=== PATIENT | female | born 2000 | race African-American/Black ===

== ENCOUNTER 2019-07-04 13:34 | Inpatient (IN) | payer OTHER ==
[~2019-07-04] VITALS: Ht 160 cm; Wt 97.2 kg
[2019-07-04] MEDS ORDERED: PRENTAB9 PO (13:51)
[2019-07-04 13:52] VITALS: BP 130/86
[2019-07-04] MEDS ORDERED: miSOPROStol 50 MCG 1/2 TAB (S0191) PO ONE (14:15)
[2019-07-04 14:41] LABS: BASO % 0.3 % (0.0-1.0); EOS # 0.1 10^3/uL (0.0-0.5); EOS % 0.7 % (0.0-3.0); HEMATOCRIT 34.9 % (36.0-47.0); HEMOGLOBIN 11.8 g/dl (12.0-15.5); LYMPH # 2.1 10^3/uL (1.5-5.0); LYMPH % 20.3 % (24.0-44.0); MEAN CORPUSCULAR HEMOGLOBIN 31.4 pg (27.0-33.0); MEAN CORPUSCULAR HGB CONC 33.8 g/dl (32.0-36.5); MEAN CORPUSCULAR VOLUME 92.8 fl (80.0-96.0); MONO # 1.1 10^3/uL (0.0-0.8); MONO % 10.4 % (0.0-5.0); NEUTROPHILS # 6.9 10^3/uL (1.5-8.5); NEUTROPHILS % 67.7 % (36.0-66.0); PLATELET COUNT, AUTOMATED 288 10^3/uL (150-450); RED BLOOD COUNT 3.76 10^6/uL (4.00-5.40); WHITE BLOOD COUNT 10.1 10^3/uL (4.0-10.0)
[2019-07-04 16:56] VITALS: BP 132/75
--- NOTE | 2019-07-04 19:18 | IPNPDOC ---
Text Note Date of Service The patient was seen on 07/04/19. NOTE patient is a 18 yo G1 @41 wks, admitted for IOL. She received misoprostol 50mcg x 1. patient feeling mild ctx. vitals: normal NAD fht: 140/mod emelyn/pos accel/no decel toco: ctx q 1-2mins CE: 2-3cm/50 (per nursing check) a/p patient in latent labor. responding to misoprostol. Will continue expectant management at this time. redose misoprostol if contraction slows down. recheck in 6hrs. DO Emilee VS,Goodbone, I+O VS, Fishbone, I+O Laboratory Tests 07/04/19 14:04 Vital Signs Date Time Temp Pulse Resp B/P (MAP) Pulse Ox O2 Delivery O2 Flow Rate FiO2 07/04/19 16:56 69 18 132/75 (94) JENELLE RATLIFF DO July 04, 2019 19:18
[2019-07-04 20:11] VITALS: BP 134/70
[2019-07-04] MEDS ORDERED: PROMETHAZINE INJ 25 MG/ML VIAL (J2550) IV ONE (20:30)
[2019-07-04] MEDS ORDERED: MORPHINE 10 MG/ML 1ML VIAL (J2270) IV ONE (20:30)
[2019-07-04] MEDS ORDERED: MORPHINE 10 MG/ML 1ML VIAL (J2270) IM ONE (20:30)
[2019-07-04 22:59] VITALS: BP 117/66
[2019-07-05] VITALS (63 sets, daily range): BP systolic 92–159; BP diastolic 51–81
[2019-07-05] MEDS ORDERED: PROMETHAZINE INJ 25 MG/ML VIAL (J2550) IV ONE (01:15)
[2019-07-05] MEDS ORDERED: BUTORPHANOL 2 MG/ML INJ (J0595) IV ONE (01:15)
[2019-07-05] MEDS ORDERED: FENTANYL 2MCG/ML ROPIVACAINE 0.2% IN 0.9% NACL 100ML IVBAG As Ordered ONE ×2 (04:04→14:24)
[2019-07-05] MEDS ORDERED: EPIDURAL COMMENT XX SCH (05:30)
[2019-07-05] MEDS ORDERED: ePHEDrine SULFATE 25 MG/5 ML(5MG/ML) SYRINGE IV PRN (05:30)
[2019-07-05] MEDS ORDERED: NALOXONE INJ 0.4MG/1ML VIAL (J2310 PER 1MG) IV PRN (05:30)
[2019-07-05] MEDS ORDERED: EPIDURAL/PCA KEYS XX PRN (05:30)
[2019-07-05] MEDS ORDERED: diphenhydrAMINE 50MG/ML VIAL (J1200) IV PRN (05:30)
[2019-07-05] MEDS ORDERED: ONDANSETRON 4MG/2ML VIAL IV PRN (05:30)
[2019-07-05] MEDS: FENTANYL/ROPIVACAINE/NACL BAG 100 ML EPIDURAL SCH ×2 (05:30→14:45)
[2019-07-05] MEDS ORDERED: REFRIGERATOR IV KEYS XX PRN (05:30)
[2019-07-05] MEDS ORDERED: OXYTOCIN DRIP 30 UNITS in IV 1 EA IV SCH (06:15)
[2019-07-05] MEDS: LACTATED RINGER'S 1000 ML IV PRN (08:10)
--- NOTE | 2019-07-05 11:12 | IPNPDOC ---
Obstetrical Progress Note Date of Service July 05, 2019 Subjective [place] of care note. Received report from Dr. Hebert during board sign out of 18yo at 41+1wks currently undergoing post-dates IOL. She received 1x PO 50mcg cytotec yesterday, IV pain medication; now s/p epidural placement this AM and pitocin initially started at 0738. SROM occurred at 2205 with light meconium. It was noted that fetus has had multiple periods of minimal variability and upon strip review, sublte, intermittent late decelerations also noted. Pt now comfortable and denies any concerns; no longer feeling any pain. Her partner is at the bedside. Objective O: VSS, afebrile, normotensive; *although afebrile, it has been noted pt's temp has continued to rise overnight - will closely monitor VE at 0914: 5/90/-2, mid position, caput present *light bloody show noted on perineum; once hand removed after cervical exam, there was approximately 2TBS blood noted in hand; there is no trickling or clots present; will closely monitor bleeding FHR: 140s, minimal variability (there are periods of moderate variability with accels); interventions have been ongoing throughout labor (LR bolus, ephedrine after epidural, repositioning); O2 placed at 0945 when variability was borderline absent and fetus responded almost instantly. CTX: irregular, but present; currently q4 minutes Pitocin was turned off when O2 started; restarted at 1054 at 2mu/min Vital Signs Date Time Temp Pulse Resp B/P (MAP) Pulse Ox O2 Delivery O2 Flow Rate FiO2 07/05/19 09:43 93 118/57 (77) 07/05/19 09:26 16 07/05/19 09:02 99.4 07/05/19 07:16 98 Room Air Assessment Heart Rate Tracing: Category II Sterile Vaginal Examination Postion/Presentation: Cephalic presentation Assessment and Plan Group B Streptococcus: Negative Anticipate: Vaginal Delivery Additional Comments A: 18yo at 41+1wks, IOL for post-dates; Persistent Category II FHT d/t minimal variability (with ongoing interventions). P: Continue interventions for Category II FHT Close maternal/ monitoring Close monitoring of vaginal bleeding CEFM x2, consider placing internal monitors at next exam Dr. Cinda aware of /labor status Safe to proceed and anticipate at this time ALLAN BREEN. CELE July 05, 2019 11:12
--- NOTE | 2019-07-05 17:21 | IPNPDOC ---
Obstetrical Progress Note Date of Service July 05, 2019 Subjective In room for labor assessment; pt consents to cervical exam. Narda is a 18yo at 41+1wks undergoing IOL for post dates. She is still very comfortable with her epidural in place. FSE placed at 1244; during that exam cervix was 6/90/-2. Objective O: VSS, afebrile, normotensive VE at 1652: 6.5cm, caput is a 0 station. Cervix is now thicker than last exam, feels slightly swollen. FHR 140s, minimal variability, early decelerations noted. There are remarkable periods of moderate variability with positive accels. CTX by toco are difficult to appropriately monitor; IUPC was placed and MVUs are now 250. Pitocin running at 4mu/min Vital Signs Date Time Temp Pulse Resp B/P (MAP) Pulse Ox O2 Delivery O2 Flow Rate FiO2 07/05/19 16:11 99.0 93 16 120/65 (83) 07/05/19 07:16 98 Room Air Assessment Heart Rate Tracing: Category II Sterile Vaginal Examination Postion/Presentation: Cephalic presentation Assessment and Plan Additional Comments A: 18yo at 41+1wks, minimal cervical global director air and climate change the past 4 hours, now with cervical swelling; Persistent category II FHT d/t minimal variability (with periods of moderate variability with accels); meconium stained amniotic fluid; pitocin at 4mu/min. P: Continue induction Close monitoring of maternal/ status Will notify Dr. Loo of labor/ status Reassess in 2 hours or sooner PRN Safe to proceed with goal of vaginal delivery. ALLAN BREEN CNM July 05, 2019 17:21
--- NOTE | 2019-07-05 21:55 | IPNPDOC ---
Obstetrical Progress Note Date of Service July 05, 2019 Subjective In room for labor assessment. Patient consents for cervical exam. Narda is a 18yo at 41+1wks, undergoing IOL for post dates. She is starting to feel more rectal pressure at this time. Objective O: VSS, normotensive, afebrile VE: 8-9/100/0 FHR 140s, moderate variability (cycling periods of minimal variability), positive accels, early, late and variable decelerations noted, now repetitive. CTX by IUPC: q2 minutes, MVUs around 230 Pitocin running at 6mu/min Interventions ongoing for Late and Variable decelerations Vital Signs Date Time Temp Pulse Resp B/P (MAP) Pulse Ox O2 Delivery O2 Flow Rate FiO2 07/05/19 19:42 93 134/69 (90) 07/05/19 19:11 99.3 17 07/05/19 07:16 98 Room Air Assessment Heart Rate Tracing: Category II Sterile Vaginal Examination Postion/Presentation: Cephalic presentation Assessment and Plan Additional Comments A: 18yo at 41+1wks, Active labor, Category II FHT with interventions P: Tracing reviewed with Dr. Loo Start Amnioinfusion (250mL NS bolus) Close maternal/ monitoring Continue pitocin Safe to proceed Anticipate ALLAN SOTO CNM July 05, 2019 21:55
[2019-07-05] MEDS ORDERED: fentaNYL 100 MCG/2 ML INJECTION (J3010) As Ordered ONE (23:37)
[2019-07-06] VITALS (59 sets, daily range): BP systolic 113–156; BP diastolic 62–89
[2019-07-06] MEDS: FENTANYL/ROPIVACAINE/NACL BAG 100 ML EPIDURAL SCH ×2 (01:30→11:30)
--- NOTE | 2019-07-06 03:56 | IPNPDOC ---
Text Note Date of Service The patient was seen on 07/06/19. NOTE Labor Progress Note S: 18yo at 41+2wks feeling more and more rectal pressure. She is s/p epidural bolus in which she was able to sleep. She is not reporting pain. O: VSS, afebrile, normotensive VE: 9/C/0 (unchanged from 2318) FHR 135, minimal variability with periods of moderate variability, + accels, no decels noted CTX: q1-2, MVUs averaging 240 A: Active labor with no progression, Category II FHT d/t minimal variability, overall reassuring at this time P: Dr. Loo notified of patient and status Continue pitocin Close maternal/ monitoring Monitor pain control, epidural bolus if needed Safe to proceed with anticipate of C/S if appropriate VS,Fishbone, I+O VS, Fishbone, I+O Vital Signs Date Time Temp Pulse Resp B/P (MAP) Pulse Ox O2 Delivery O2 Flow Rate FiO2 07/05/19 19:42 93 134/69 (90) 07/05/19 19:11 99.3 17 07/05/19 07:16 98 Room Air I&O- Last 24 Hours up to 6 AM 07/06/19 06:00 Intake Total 1845 ml Output Total 2025 ml Balance -180 ml ALLAN BREEN CNM July 06, 2019 03:56
--- NOTE | 2019-07-06 04:53 | IPNPDOC ---
Text Note Date of Service The patient was seen on 07/06/19. NOTE Intrapartum Note Narda is a 18yo with SIUP at 41w2d undergoing IOL for LTG, started on afternoon of 07/03. She has an epidural and feels some vaginal pressure but otherwise comfortable. MVUs have been adequate with IUPC in place. Pitocin currently at 6mu. Cat I FHRT. I was called in to evaluate since SCE unchanged over 4 hours, still 9cm. Vitals wnl, afebrile SCE: right lip, 90, -1, bladder constantino bulb was below the cervix/ head, so I pushed it back up into the bladder Given the resolution of mechanical impedance in the setting of continued Cat I FHRT, will not proceed with PLTCS at this time and allow for continued labor and possible . Plan to re-eval in 2-4hr or earlier as indicated Dr. Tari Loo MD VS,Taqueria, I+O VS, Taqueria, I+O Vital Signs Date Time Temp Pulse Resp B/P (MAP) Pulse Ox O2 Delivery O2 Flow Rate FiO2 07/05/19 19:42 93 134/69 (90) 07/05/19 19:11 99.3 17 07/05/19 07:16 98 Room Air I&O- Last 24 Hours up to 6 AM 07/06/19 06:00 Intake Total 1845 ml Output Total 2025 ml Balance -180 ml Tari Loo MD July 06, 2019 04:53
[2019-07-06] MEDS ORDERED: ACETAMINOPHEN 650 MG SUPP PR PRN (07:45)
--- NOTE | 2019-07-06 07:59 | IPNPDOC ---
Text Note Date of Service The patient was seen on 07/06/19. NOTE Intrapartum Note S: Narda is a 18yo with SIUP at 41w2d undergoing IOL for post dates, started at 41+0wks on [id number]. She has also been ruptured x 34 hours. She is feeling increased vaginal pressure. MVUs have been adequate with IUPC in place. Pitocin currently at 4mu. Cat II FHRT d/t minimal variability. Narda states that she now desires a section d/t to maternal exhaustion and feels as if "something is wrong." She is also refusing to reposition and use the peanut ball any longer. O: Maternal temp (101.1 temporal); Maternal tachycardia (115-130); normotensive FHR 155, minimal variability, no accels or decels present. Last access was at 0718 during my exam. CTX by IUPC: MVUs 195 VE: Anterior right lip/90/0; Attempted a trial push do see if cervix to try to reduce lip; not effective at this time. A: New Dx of chorio, unchanged cervix ( head now at 0); Pt desires delivery by section. Category II FHT with ongoing interventions. P: Dr. Loo notified of patient/ status, chorio, and patient's request for section. Unasyn 3g and 650mg Tylenol (suppository) ordered for chorio Peds staff notified of chorio Will continue to encourage position change and peanut ball placement. Continue interventions for Category II FHT Pitocin turned off. Will reassess at o/a 0830 to determine plan for delivery. VS,Fishbone, I+O VS, Fishbone, I+O Vital Signs Date Time Temp Pulse Resp B/P (MAP) Pulse Ox O2 Delivery O2 Flow Rate FiO2 07/06/19 07:20 101.1 07/06/19 05:11 109 119/73 (88) 07/06/19 04:46 16 07/05/19 07:16 98 Room Air I&O- Last 24 Hours up to 6 AM 07/06/19 06:00 Intake Total 1845 ml Output Total 2625 ml Balance -780 ml ALLAN BREEN CNM July 06, 2019 07:59
[2019-07-06] MEDS ORDERED: AMPICILLIN SOD/SULBACTAM SOD 3 GM in D5W MINI-BAG PLUS 100 ML IV ONE (08:00)
--- NOTE | 2019-07-06 08:58 | IPNPDOC ---
Text Note Date of Service The patient was seen on 07/06/19. NOTE Decision for section I was called at 0730 for new maternal fever to 102.6F with maternal tachycardia (no tachycardia at that point) and diagnosis of chorioamnionitis made, Unasyn 3g q6hr started as well as tylenol. Patient is declining to pursue any further, requested pitocin to be turned off. She feels pressure with her ctx but no belly pain. Currently still febrile to 102F, pulse 113, normotensive Cat I-II FHRT with bl 160, +accels, -decels, min-mod emelyn Davy: ctx q2-3min SCE: 9 (still same right lip irreducible)/90/-1. FSE and IUPC removed in anticipation of c/s I counseled patient regarding diagnosis of arrest of dilation and chorioamnionitis (which was already discussed with CELE Zhang). Consent form for PLTCS and blood transfusion discussed, all r/b/a, and signed by patient and me. All questions answered. Nursing team aware of decision for and calling anesthesia provider now. Will proceed as soon as OR ready. 2g IV anceph Ivetitra NPO Dr. Tari Loo MD VS,Taqueria, I+O VS, Taqueria, I+O Vital Signs Date Time Temp Pulse Resp B/P (MAP) Pulse Ox O2 Delivery O2 Flow Rate FiO2 07/06/19 08:49 124 07/06/19 08:48 142/80 (100) 07/06/19 08:39 102.6 18 07/05/19 07:16 98 Room Air I&O- Last 24 Hours up to 6 AM 07/06/19 06:00 Intake Total 1845 ml Output Total 2625 ml Balance -780 ml Tari Loo MD July 06, 2019 08:58
[2019-07-06] MEDS ORDERED: BICITRA 30ML SOLN UDC PO ONE (09:00)
[2019-07-06] MEDS ORDERED: ceFAZolin SOD 2 GM in IV 1 EA IV ONE (09:15)
[2019-07-06] MEDS: LACTATED RINGER'S 1000 ML IV PRN (09:25)
[2019-07-06] MEDS ORDERED: LIDOCAINE 2% W/EPIN INJ 20ML **PRES FREE As Ordered ONE (09:37)
[2019-07-06] MEDS ORDERED: MORPHINE PRES-FREE INJ 10 MG/10 ML VIAL (J2274) As Ordered ONE (09:53)
[2019-07-06] MEDS ORDERED: OXYTOCIN 30 UNITS IN 0.9% NaCl 500ML IV BAG (J2590) As Ordered ONE ×2 (09:53→10:53)
[2019-07-06] MEDS ORDERED: AZITHROMYCIN INJ 500MG VIAL (J0456 PER 500MG) As Ordered ONE (10:07)
[2019-07-06] MEDS ORDERED: NALOXONE INJ 0.4MG/1ML VIAL (J2310 PER 1MG) IV PRN ×2 (10:10)
[2019-07-06] MEDS ORDERED: NALBUPHINE HCL 10 MG/ML AMP (J2300) IV PRN (10:10)
[2019-07-06] MEDS ORDERED: METOCLOPRAMIDE INJ 10MG/2ML VIAL (J2765 PER 1) IV PRN ×2 (10:10→11:30)
[2019-07-06] MEDS ORDERED: ONDANSETRON 4MG/2ML VIAL IV PRN ×2 (10:10→11:30)
[2019-07-06] MEDS ORDERED: diphenhydrAMINE 50MG/ML VIAL (J1200) IV PRN (10:10)
[2019-07-06] MEDS ORDERED: KETOROLAC 60 MG/2 ML VIAL As Ordered ONE (10:14)
[2019-07-06] MEDS ORDERED: ONDANSETRON 4MG/2ML VIAL As Ordered ONE (10:14)
[2019-07-06] MEDS ORDERED: fentaNYL 100 MCG/2 ML INJECTION (J3010) As Ordered ONE (10:28)
[2019-07-06 10:30] LABS: CORD GAS ABE V -4.9; CORD GAS HCO3 V 20.2 MEQ/L; CORD GAS O2 SAT V 77.9 %; CORD GAS PCO2 V 37.7 mmHg; CORD GAS PH V 7.346 UNITS; CORD GAS PO2 V 36.1 mmHg; CORD GAS TCO2 V 21.3 MEQ/L
[2019-07-06] MEDS ORDERED: AZITHROMYCIN INJ 500 MG, VIAL MATE ADAPTER 1 EACH in D5W 250 ML IV ONE (10:30)
[2019-07-06 10:35] LABS: CORD GAS ABE A -4.9; CORD GAS HCO3 A 21.6 MEQ/L; CORD GAS O2 SAT A 27.4 %; CORD GAS PCO2 A 45.1 mmHg; CORD GAS PH A 7.298 UNITS; CORD GAS PO2 A 15.5 mmHg; CORD GAS SBC A 18.9 MEQ/L
[2019-07-06] MEDS ORDERED: miSOPROStol 200 MCG TAB (S0191) As Ordered ONE (10:55)
--- NOTE | 2019-07-06 11:08 | DNPDOC ---
[facility] Delivery Note Delivery Note DATE OF DELIVERY: 07/06/2019 PREDELIVERY DIAGNOSIS: 41w2d iol for LTG, arrest of dilation, persistent OP presentation, chorioamnionitis POST DELIVERY DIAGNOSIS: same as above, delivered. PROCEDURE: primary low transverse section ACTUARIAL TECHNICIAN: Dr. Tari Loo MD ANESTHESIA: epidural ESTIMATED BLOOD LOSS: 700 mL. FINDINGS: 8 pound 13 ounce (3990g) male infant, Score 8/9 DELIVERY SUMMARY: Narda is a 18yo [id number] s/p uncomplicated PLTCS at 41w2d after undergoing IOL for LTG, having arrest of dilation in the setting of persistent OP pr esentation. See dictated operative report for further details. MD Cinda Cortes Katrina D MD July 06, 2019 11:08
[2019-07-06] MEDS ORDERED: RHOGAM 300 MCG (1500 IU) INJ (J2790) IM SCH (11:15)
[2019-07-06] MEDS ORDERED: PERCOCET 5MG/325MG TAB PO PRN ×3 (11:15→11:30)
[2019-07-06] MEDS ORDERED: MEASLES,MUMPS,RUBELLA VACCINE INJ (MMR-II) (90707) SC SCH (11:15)
[2019-07-06] MEDS ORDERED: PERCOCET 5MG/325MG TAB As Ordered ONE (11:19)
[2019-07-06] MEDS ORDERED: LR 1,000 ML IV SCH ×2 (11:30→12:00)
[2019-07-06] MEDS ORDERED: fentaNYL 100 MCG/2 ML INJECTION (J3010) IV PRN (11:30)
[2019-07-06] MEDS ORDERED: OXYTOCIN DRIP 30 UNITS in IV 1 EA IV SCH (11:30)
[2019-07-06] MEDS ORDERED: miSOPROStol 200 MCG TAB (S0191) PR ONE (11:30)
[2019-07-06] MEDS: KETOROLAC 30 MG/ML 1ML VIAL IV SCH ×2 (17:38→22:06)
[2019-07-06] MEDS: DOCUSATE SODIUM 100 MG CAP PO SCH (22:06)
[2019-07-07 02:00] VITALS: BP 133/75
[2019-07-07] MEDS: KETOROLAC 30 MG/ML 1ML VIAL IV SCH (05:51)
[2019-07-07 06:00] VITALS: BP 116/36
[2019-07-07 07:50] LABS: HEMATOCRIT 25.5 % (36.0-47.0); HEMOGLOBIN 8.6 g/dl (12.0-15.5); MEAN CORPUSCULAR HEMOGLOBIN 31.6 pg (27.0-33.0); MEAN CORPUSCULAR HGB CONC 33.7 g/dl (32.0-36.5); MEAN CORPUSCULAR VOLUME 93.8 fl (80.0-96.0); PLATELET COUNT, AUTOMATED 170 10^3/uL (150-450); RED BLOOD COUNT 2.72 10^6/uL (4.00-5.40); WHITE BLOOD COUNT 10.4 10^3/uL (4.0-10.0)
[2019-07-07] MEDS: PRENATAL VITAMINS CHEWABLE TABLET PO SCH (08:10)
[2019-07-07] MEDS: DOCUSATE SODIUM 100 MG CAP PO SCH ×2 (08:10→20:07)
--- NOTE | 2019-07-07 09:58 | IPNPDOC ---
Progress Note Date of Service: July 07, 2019 Day#: 1 Progress Note POD/PPD 1 SUBJECT: Narda is a 18yo [id number] s/p uncomplicated PLTCS in the morning of 10 June after undergoing IOL for LTG at 41w2d and experiencing arrest of dilation related to persistent OP presentation. She also developed chorioamnionitis during her labor course. She is doing well /post-op day # 1. She has been ambulating, voiding spontaneously without issue after constantino removed and tolerating regular diet. Breast feeding without issue. Baby is in NICU for chorio. Pain is well controlled. Reports lochia is like a normal period. No lightheadedness/dizziness, f/c/n/v/CP/SOB. OBJECTIVE: VITAL SIGNS: Within normal limits, afebrile. Alert and oriented times three. Abdomen: Fundus firm at U-2. Soft, appropriately tender to palpation. Pfannenteil incision is covered by dry/clean pressure dressing Extremities: trace edema of BLE, no pain with palpation of calves ASSESSMENT: Narda is a 18yo [id number] s/p uncomplicated PLTCS in the morning of 10 June after undergoing IOL for LTG at 41w2d and experiencing arrest of dilation related to persistent OP presentation. She also developed chorioamnionitis during her labor course. She is doing well /post-op day # 1. Vitals within normal limits, afebrile, hemodynamically stable with no evidence of infection. PLAN: 1. Routine /post-op care 2. percocet and Motrin for pain. 3. continue unasyn 3g q6hr until 24hr post-op 4. Encourage breast feeding and ambulation to see baby in NICU as well as use of IS 5. Regular diet 6. Ok to shower later today and remove outer bandage, keep steri strips in place for [address] Tari Loo MD VS, I&O, 24H, Fishbone Vital Signs/I&O Vital Signs Date Time Temp Pulse Resp B/P (MAP) Pulse Ox O2 Delivery O2 Flow Rate FiO2 07/07/19 06:00 97.2 104 18 116/36 (62) 99 Room Air I&O- Last 24 Hours up to 6 AM 07/07/19 06:00 Intake Total 2255 ml Output Total 2300 ml Balance -45 ml Laboratory Data 24H LABS Laboratory Tests 2 07/06/19 10:19: Cord Arterial Blood pH 7.298, Cord Arterial Blood PCO2 45.1, Cord Arterial Blood PO2 15.5, Cord Arterial Blood HCO3 21.6, Cord Arterial Blood Total CO2 23.0, Cord Arterial Blood Base Excess -4.9, Cord Arterial Base Excess (Standard 18.9, Cord Arterial Bld Oxygen Saturation 27.4, Cord Venous Blood pH 7.346, Cord Venous Blood PCO2 37.7, Cord Venous Blood PO2 36.1, Cord Venous Blood HCO3 20.2, Cord Venous Blood Total CO2 21.3, Cord Venous Base Excess (Actual) -4.9, Cord Venous Base Excess (Standard) 20.0, Cord Venous Blood Oxygen Saturation 77.9 07/07/19 07:29: Nucleated Red Blood Cells % (auto) 0.0 CBC/BMP Laboratory Tests 07/07/19 07:29 Tari Loo MD July 07, 2019 09:58
[2019-07-07 10:35] VITALS: BP 130/69
[2019-07-07] MEDS: IBUPROFEN 800 MG TAB PO SCH ×2 (13:40→20:07)
[2019-07-07 15:00] VITALS: BP 112/58
[2019-07-07 18:22] VITALS: BP 139/73
[2019-07-07 22:00] VITALS: BP 115/67
--- NOTE | 2019-07-07 23:07 | RO ---
DATE OF PROCEDURE: 07/06/2019 SURGEON: Dr. Tari Loo WIRE COINER: Dr. Priscilla Zuñiga whose assistance was necessary for retraction, closure of all of tissue layers, as well as assistance with delivery of the infant. CLINICAL SERVICE: Obstetrics INDICATIONS FOR OPERATION: Narda is a 18-year-old G1, now P1-0-0-1 who was admitted for induction of labor at 41 weeks and progressed to 8 cm dilation, but because of persistent occiput posterior (OP) presentation, she had no further progression beyond 8 cm for greater than 6 hours and in the process she developed chorioamnionitis, which was treated with antibiotics PREOPERATIVE DIAGNOSES: 1. Induction of labor at 41 weeks for late term gestation. 2. Arrest of dilation related to persistent occiput posterior presentation. 3. Chorioamnionitis. POSTOPERATIVE DIAGNOSES: 1. Induction of labor at 41 weeks for late term gestation. 2. Arrest of dilation related to persistent occiput posterior presentation. 3. Chorioamnionitis. MATERIAL FORWARDED TO THE LAB FOR EXAMINATION: Placenta and cord gases, pH arterial 7.298, base excess negative 4.9, pH venous 7.346, base excess negative 4.9. DESCRIPTION OF FINDINGS: Male in OP presentation. scores 8 and 9. Weight 3990 grams or 8 pounds 13 ounces. Normal appearing uterus, fallopian tubes and ovaries. There was meconium-stained fluid. INFECTION CLASSIFICATION: 2 ESTIMATED BLOOD LOSS: 700 mL. URINE OUTPUT: 200 mL IV FLUIDS: 1.1 liters lactated Ringer's. OPERATION PERFORMED: Primary low transverse section. DESCRIPTION OF OPERATION: After obtaining informed consent, the patient was taken to the operating room. She already had epidural anesthesia and Adame catheter in place. Bilateral sequential compression devices were in place. She was prepped and draped in the normal sterile fashion in dorsal supine position with a left lateral tilt. Time-out was performed to confirm patient name, date of , procedure and indication; the team was in agreement. She had received Unasyn 3 grams for the chorioamnionitis, she received 2 grams IV Ancef for prophylaxis, and then she received 500 mg IV azithromycin for prophylaxis as well. Epidural anesthesia was found to be adequate using an Allis clamp. A Pfannenstiel skin incision was made with a scalpel and carried through to the underlying layer of fascia. Fascia was incised in the midline, and the incision was extended laterally with Zarate scissors. Superior and inferior aspects of fascial incision were grasped with Nay clamps, elevated and the underlying rectus muscles were dissected off bluntly and sharply. Peritoneum was entered digitally, and the rectus muscles were in the midline. Peritoneal incision was extended superiorly and inferiorly with good visualization of the bladder. Bladder blade was inserted and vesicouterine peritoneum was identified, grasped with pickups and entered sharply with Metzenbaum scissors. Incision was extended laterally and a bladder flap was created digitally. The bladder blade was reinserted and lower uterine segment scored in a transverse fashion with a scalpel. Uterus was entered bluntly, and the incision was extended with traction. Bladder blade was removed, and the 's head was elevated to the level of the incision. Fundal pressure was applied, head was delivered atraumatically in OP position. Anterior shoulder, posterior shoulder and corpus were delivered without difficulty. Nose and mouth were suctioned with bulb suction, cord was clamped times two and cut. Infant was handed off to the awaiting team. Cord gases were obtained. Placenta was removed with cord traction and uterine massage, and the uterus was exteriorized and cleared of all clot and debris. The uterine incision was repaired with #0 Vicryl suture in a running locking fashion and a second layer of #0 Monocryl was used to close the hysterotomy incision in an imbricating fashion. Uterine incision was inspected and hemostasis was noted. Posterior cul-de-sac was irrigated and uterus was returned to the abdomen. Gutters were cleared of all clot with hemostasis noted. Peritoneum was closed using #3-0 Vicryl suture in a running fashion. Fascia was reapproximated with #0 Vicryl suture in a running fashion. Subcutaneous tissue was copiously irrigated. Swetha fascia was reapproximated using #3-0 Vicryl suture in a running fashion. Skin edges were reapproximated using three inverted interrupted stitches using 33-0 Vicryl suture followed by a running subcuticular stitch using #4-0 Monocryl suture. The incision was cleaned using wet lap and dried with a dry lap. Steri-Strips were applied in the usual fashion perpendicular to the Pfannenstiel incision. Two strips of Telfa were layered on top of the Steri-Strips followed by a dry sterile towel. Surgical drapes were removed. Sterile towel was removed. Pressure dressing was applied over the entire surgical incision. Vagina was cleared of all blood clot without active bleeding noted. 800 mcg of Cytotec were placed in the rectum for prophylaxis against future bleeding. Fundus was firm at U. All counts were correct times two. Procedure was without complications. The patient tolerated the procedure well. She was taken to the recovery room on labor and delivery in stable condition.
[2019-07-08 02:00] VITALS: BP 127/82
[2019-07-08] MEDS: IBUPROFEN 800 MG TAB PO SCH ×2 (05:14→13:19)
[2019-07-08 06:00] VITALS: BP 126/78
[2019-07-08] MEDS: PRENATAL VITAMINS CHEWABLE TABLET PO SCH (08:45)
[2019-07-08] MEDS: DOCUSATE SODIUM 100 MG CAP PO SCH (08:45)
[2019-07-08 10:00] VITALS: BP 131/80
[2019-07-08] MEDS ORDERED: PERCOCET PO (14:30)
[2019-07-08] MEDS ORDERED: IBUP80TA PO (14:30)
[2019-07-08] MEDS ORDERED: DOCU100C16 PO (14:30)
[2019-07-08] MEDS ORDERED: ACET65SU PR (14:30)
--- NOTE | 2019-07-08 14:35 | OBDS ---
[facility] Obstetrical Discharge Sum. Obstetrical Discharge Summary Date: July 08, 2019 Time: 14:34 : 1 Term: 1 Pre-term: 0 Abortions: 0 Livin Labor IOL for Late term gestation. Delivery Primary Low Transverse Section Sex: Male Weight: pounds, grams (3990) A/P, Post Course List any complications Admission diagnosis: IOL for LTG Discharge diagnosis: Delivered (PLTCS) Condition at Discharge: Stable Discharge Instructions: See PP Progress note. Activity: Increase as tolerated. Diet: Regular Medications: Percocet, Ibuprofen, Acetaminophen (avoid use with percocet, not to exceed 3000g total/day), colace, PNV Follow-up: 2 week incision check; 6 week routine f/u at OB clinic. ALLAN BREEN CNM July 08, 2019 14:35
--- NOTE | 2019-07-08 14:41 | IPNPDOC ---
Progress Note Date of Service: July 08, 2019 Day#: 2 Progress Note POD/PPD 2 SUBJECT: Narda is a 18yo [id number] s/p uncomplicated PLTCS in the morning of 10 June after undergoing IOL for LTG at 41w2d and experiencing arrest of dilation related to persistent OP presentation. She also developed chorioamnionitis during her labor course. She is doing well /post-op day # 2. She has been ambulating, voiding spontaneously without issue after constantino removed and tolerating regular diet. She is primarily formula feeding and has pumped only once. Baby is out of the NICU and has been discharged. Pain is well controlled. Reports lochia is like a light period. No lightheadedness/dizziness, f/c/n/v/CP/SOB. OBJECTIVE: VITAL SIGNS: Within normal limits, afebrile. Alert and oriented times three. Abdomen: Fundus firm at U-2. Soft, appropriately tender to palpation. Incision is c/d/i with clean steri-strips in place.. Extremities: trace edema of BLE, no pain with palpation of calves ASSESSMENT: Narda is a 18yo [id number] s/p uncomplicated PLTCS in the morning of 10 June after undergoing IOL for LTG at 41w2d and experiencing arrest of dilation related to persistent OP presentation. She also developed chorioamnionitis during her labor course. She is doing well /post-op day # 2. Vitals within normal limits, afebrile, hemodynamically stable with no evidence of infection. PLAN: 1. Routine /post-op care 2. percocet and Motrin for pain. PP meds available to sampler pickup at [facility]. 3. Encouraged breast feeding/pumping prior to formula supplementation 4. Encouraged frequent ambulation 5. Discharge home today. 6. Can remove steri strips in 1 week 7. f/u in clinic in 2 weeks for incision check 8. f/u in clinic in 6 weeks for routine PP exam 9. Discussed return precautions at length. VS, I&O, 24H, Fishbone Vital Signs/I&O Vital Signs Date Time Temp Pulse Resp B/P (MAP) Pulse Ox O2 Delivery O2 Flow Rate FiO2 07/08/19 10:00 97.4 67 16 131/80 (97) 96 Room Air ALLAN BREEN CNM July 08, 2019 14:41
--- NOTE | 2019-07-10 04:39 | IPN ---
DATE: 07/07/2019 This patient requested circumcision of her male after discussing risks and benefits of circumcision, the medical and nonmedical indications, penile block and aftercare. Expressed understanding of penile block, aftercare, and bleeding. Signed the consent form. All questions were answered. 20-minute discussion. We await the clearance by the community leader.
== END 2019-07-08 15:35 | disposition home or self-care (01) | DRG 771 ==
LOC: M LDI 13:34 → M OBS 07-06 12:06
PROVIDERS: ADMIT Advanced Practice Midwife; ATTEND Advanced Practice Midwife
PROC: 3E0DXGC Introduction of Other Therapeutic Substance into Mouth and Pharynx, External Approach (ICD-10-PCS; 2019-07-04)
PROC: 10D00Z1 Extraction of Products of Conception, Low, Open Approach (ICD-10-PCS; principal; 2019-07-06 09:39)
DX: O48.0 Post-term pregnancy (principal); O41.1230 Chorioamnionitis, third trimester, not applicable or unspecified; Z37.0 Single live birth; Z3A.41 41 weeks gestation of pregnancy; O62.0 Primary inadequate contractions; O64.0XX0 Obstructed labor due to incomplete rotation of fetal head, not applicable or unspecified

== ENCOUNTER 2020-03-01 06:02 | Emergency (ER) | payer OTHER ==
[~2020-03-01] VITALS: Ht 160 cm; Wt 62.5 kg
[~2020-03-01 06:02] MED LIST: ACET65SU PR; DOCU100C16 PO; IBUP80TA PO; PERCOCET PO; PRENTAB9 PO
[2020-03-01 06:43] LABS: BASO % 0.3 % (0.0-1.0); EOS # 0.1 10^3/uL (0.0-0.5); HEMATOCRIT 34.5 % (36.0-47.0); HEMOGLOBIN 11.1 g/dl (12.0-15.5); LYMPH # 1.6 10^3/uL (1.5-5.0); LYMPH % 16.3 % (24.0-44.0); MEAN CORPUSCULAR HEMOGLOBIN 28.2 pg (27.0-33.0); MEAN CORPUSCULAR HGB CONC 32.2 g/dl (32.0-36.5); MEAN CORPUSCULAR VOLUME 87.6 fl (80.0-96.0); MONO # 0.9 10^3/uL (0.0-0.8); MONO % 9.2 % (0.0-5.0); NEUTROPHILS # 7.2 10^3/uL (1.5-8.5); NEUTROPHILS % 72.8 % (36.0-66.0); PLATELET COUNT, AUTOMATED 256 10^3/uL (150-450); RED BLOOD COUNT 3.94 10^6/uL (4.00-5.40); WHITE BLOOD COUNT 9.8 10^3/uL (4.0-10.0)
[2020-03-01 07:17] LABS: MONO REFLEX EBV COMP NEGATIVE (NEGATIVE)
[2020-03-01] MEDS ORDERED: KEFL500C17 PO (07:20)
[2020-03-01 07:33] VITALS: BP 126/71
[2020-03-02 13:09] LABS: EBV VIRAL CAPSID AG IgM <36.0 U/mL (0.0-35.9)
== END 2020-03-01 07:35 | disposition home or self-care (01) ==
LOC: M ED 06:02
DX: J03.90 Acute tonsillitis, unspecified (principal)

== ENCOUNTER 2020-08-07 03:55 | Emergency (ER) | payer OTHER ==
[~2020-08-07] VITALS: Ht 160 cm; Wt 62.5 kg
[~2020-08-07 03:55] MED LIST changes: +KEFL500C17 PO
[2020-08-07] MEDS ORDERED: FLUORESCEIN OPHTH 1 MG STRIP OD ONE (06:35)
[2020-08-07] MEDS ORDERED: TETRACAINE 0.5% OPHTH SOLN 4ML OD ONE (06:35)
[2020-08-07] MEDS ORDERED: BOOSTRIX/ADACEL VACCINE (DIPHTH/PERTUSS/ACELL/TETANUS) 0.5ML SYR IM ONE (06:40)
[2020-08-07] MEDS ORDERED: POLYSOL OD (07:21)
[2020-08-07 07:30] VITALS: BP 131/71
== END 2020-08-07 07:32 | disposition home or self-care (01) ==
LOC: M ED 03:55
DX: S05.01XA Injury of conjunctiva and corneal abrasion without foreign body, right eye, initial encounter (principal); W50.0XXA Accidental hit or strike by another person, initial encounter; Y92.019 Unspecified place in single-family (private) house as the place of occurrence of the external cause; Y93.9 Activity, unspecified; Y99.9 Unspecified external cause status; F32.9 Major depressive disorder, single episode, unspecified; F41.9 Anxiety disorder, unspecified

== ENCOUNTER 2020-08-25 07:09 | Emergency (ER) | payer OTHER ==
[~2020-08-25] VITALS: Ht 160 cm; Wt 61.4 kg
[~2020-08-25 07:09] MED LIST changes: +POLYSOL OD
[2020-08-25] MEDS ORDERED: NS 1,000 ML IV ONE (07:55)
[2020-08-25] MEDS ORDERED: bcp's PO (08:15)
[2020-08-25 08:34] LABS: HEMATOCRIT 39.7 % (36.0-47.0); HEMOGLOBIN 13.1 g/dl (12.0-15.5); MEAN CORPUSCULAR HEMOGLOBIN 28.9 pg (27.0-33.0); MEAN CORPUSCULAR VOLUME 87.6 fl (80.0-96.0); PLATELET COUNT, AUTOMATED 254 10^3/uL (150-450); RED BLOOD COUNT 4.53 10^6/uL (4.00-5.40); WHITE BLOOD COUNT 4.4 10^3/uL (4.0-10.0)
[2020-08-25 08:55] LABS: ALBUMIN 3.7 GM/DL (3.2-5.2); ALT/SGPT 14 U/L (12-78); BILIRUBIN,DIRECT 0.2 MG/DL (0.0-0.2); BILIRUBIN,TOTAL 0.7 MG/DL (0.2-1.0); BLOOD UREA NITROGEN 14 MG/DL (7-18); CALCIUM LEVEL 8.5 MG/DL (8.5-10.1); CARBON DIOXIDE LEVEL 24 MEQ/L (21-32); CHLORIDE LEVEL 103 MEQ/L (98-107); CREATININE FOR GFR 0.82 MG/DL (0.55-1.30); GLOMERULAR FILTRATION RATE > 60.0 (>60); GLUCOSE, FASTING 98 MG/DL (70-100); LIPASE 72 U/L (73-393); POTASSIUM SERUM 3.2 MEQ/L (3.5-5.1); SODIUM LEVEL 135 MEQ/L (136-145); TOTAL PROTEIN 7.7 GM/DL (6.4-8.2)
[2020-08-25] MEDS ORDERED: POTASSIUM CHLORIDE 10 MEQ SR TABLET PO ONE (09:15)
[2020-08-25 09:19] LABS: HCG, SERUM QUALITATIVE NEGATIVE (NEGATIVE)
[2020-08-25 09:27] LABS: BASOPHILS 1 % (0-1); LYMPHOCYTES 21 % (16-44); MONOCYTES 1 % (0-5); NEUTROPHILS 46 % (28-66); PLATELET ESTIMATE NORMAL (NORMAL)
[2020-08-25 10:15] VITALS: BP 122/64
[2020-08-25] MEDS ORDERED: VANC125C10 PO (12:48)
== END 2020-08-25 10:30 | disposition home or self-care (01) ==
LOC: M ED 07:09
DX: E87.6 Hypokalemia (principal); R11.2 Nausea with vomiting, unspecified; R19.7 Diarrhea, unspecified; A04.72 Enterocolitis due to Clostridium difficile, not specified as recurrent; F41.9 Anxiety disorder, unspecified; F32.9 Major depressive disorder, single episode, unspecified; J30.2 Other seasonal allergic rhinitis; Z79.3 Long term (current) use of hormonal contraceptives; Z79.899 Other long term (current) drug therapy

== ENCOUNTER 2020-09-07 10:18 | Emergency (ER) | payer OTHER ==
[~2020-09-07] VITALS: Ht 160 cm; Wt 61.8 kg
[~2020-09-07 10:18] MED LIST changes: +VANC125C10 PO; +bcp's PO
[2020-09-07 14:13] VITALS: BP 116/68
[2020-09-07] MEDS ORDERED: VANC125C3 PO (16:04)
== END 2020-09-07 14:30 | disposition home or self-care (01) ==
LOC: M ED 10:18
DX: A04.72 Enterocolitis due to Clostridium difficile, not specified as recurrent (principal); A08.32 Astrovirus enteritis; K62.5 Hemorrhage of anus and rectum

== ENCOUNTER 2022-03-20 10:24 | Emergency (ER) | payer OTHER ==
[~2022-03-20] VITALS: Ht 160 cm; Wt 63.6 kg
[~2022-03-20 10:24] MED LIST changes: +VANC125C3 PO
[2022-03-20 11:57] LABS: RSV AMPLIFICATION NEGATIVE (NEGATIVE)
[2022-03-20 12:58] LABS: BASO % 0.3 % (0.0-1.0); HEMATOCRIT 42.9 % (36.0-47.0); HEMOGLOBIN 14.2 g/dl (12.0-15.5); LYMPH # 0.7 10^3/uL (1.5-5.0); LYMPH % 8.6 % (24.0-44.0); MEAN CORPUSCULAR HEMOGLOBIN 29.5 pg (27.0-33.0); MEAN CORPUSCULAR HGB CONC 33.1 g/dl (32.0-36.5); MEAN CORPUSCULAR VOLUME 89.2 fl (80.0-96.0); MONO # 0.4 10^3/uL (0.0-0.8); MONO % 5.4 % (2.0-8.0); NEUTROPHILS # 6.7 10^3/uL (1.5-8.5); NEUTROPHILS % 85.3 % (36.0-66.0); PLATELET COUNT, AUTOMATED 314 10^3/uL (150-450); RED BLOOD COUNT 4.81 10^6/uL (4.00-5.40); WHITE BLOOD COUNT 7.8 10^3/uL (4.0-10.0)
[2022-03-20 13:25] LABS: LIPASE 31 U/L (12-53)
[2022-03-20 13:26] LABS: BILIRUBIN,DIRECT < 0.1 MG/DL (<0.4)
[2022-03-20 13:27] LABS: ALBUMIN 3.9 G/DL (3.2-5.2); ALKALINE PHOSPHATASE 76 U/L (46-116); ALT/SGPT 17 U/L (7.0-40); AST/SGOT 21 U/L (<34); BILIRUBIN,TOTAL 0.4 MG/DL (0.3-1.2); BLOOD UREA NITROGEN 16 MG/DL (9-23); CALCIUM LEVEL 9.3 MG/DL (8.5-10.1); CARBON DIOXIDE LEVEL 22 MMOL/L (20-31); CHLORIDE LEVEL 103 MMOL/L (98-107); GLOMERULAR FILTRATION RATE > 60.0 (>60); GLUCOSE, FASTING 101 MG/DL (60-100); POTASSIUM SERUM 4.4 MMOL/L (3.5-5.1); SODIUM LEVEL 136 MMOL/L (136-145); TOTAL PROTEIN 8.4 G/DL (5.7-8.2)
[2022-03-20 13:37] LABS: HCG, SERUM QUALITATIVE NEGATIVE (NEGATIVE)
[2022-03-20] MEDS ORDERED: ONDANSETRON 4MG ORAL DISINTEGRATING TAB PO ONE (14:30)
[2022-03-20] MEDS ORDERED: ONDA4TAB6 PO (14:30)
[2022-03-20 14:36] VITALS: BP 134/73
== END 2022-03-20 14:39 | disposition home or self-care (01) ==
LOC: M ED 10:24
DX: K52.9 Noninfective gastroenteritis and colitis, unspecified (principal); Z79.83 Long term (current) use of bisphosphonates